=== PATIENT | male | born 1935 | race Caucasian/White ===

== ENCOUNTER → 2020-05-25 | Outpatient (CLI) | payer MEDICARE, OTHER ==
--- NOTE | 2020-05-25 17:31 | RAD ---
L-spine 3 views INDICATION: Back pain COMPARISON: Abdomen pelvis CT without IV contrast of 09/14/2006. FINDINGS: 5 lumbar type vertebrae are identified with mild exaggeration of normal lumbar lordosis near the lumb osacral junction. Mild retrolisthesis of L2 on L3 is apparent and there is mild levoscoliosis with th e apex at L1-L2. There is preservation of vertebral body heights although the bones are demineralized. There is howeve r narrowing of multiple disc spaces throughout the lumbar spine, and in association with facet hypert rophy, likely results in at least mild foraminal stenoses most conspicuous at L5-S1 and at L2-L3. Soft tissues show aortic calcifications. Sacroiliac joints and hips are unremarkable. IMPRESSION: Lumbar spinal degenerative changes with no acute fracture or aggressive appearing bony lesions. Electronically signed by: Estuardo Ruelas MD (05/25/2020 5:29 PM) [id number]
== END ==
LOC: DXRAD 12:03
PROVIDERS: ATTEND Family Medicine
DX: M48.061 Spinal stenosis, lumbar region without neurogenic claudication (principal); M40.56 Lordosis, unspecified, lumbar region; M54.5 Low back pain
CPT/HCPCS: 72100

== ENCOUNTER → 2021-05-31 | Outpatient (CLI) | payer MEDICARE, OTHER ==
--- NOTE | 2021-05-31 18:59 | RAD ---
Chest PA and lateral: Reason for examination: Upper respiratory infection. The heart size is normal. Mediastinum is unremarkable. Lung radford are clear. No acute bony abnormali ties are seen. Impression: No acute cardiopulmonary disease. Electronically signed by: Ginger Varner MD (05/31/2021 6:56 PM) [id number]
== END ==
LOC: RAD 09:36
PROVIDERS: ATTEND Family Medicine
DX: J06.9 Acute upper respiratory infection, unspecified (principal)
CPT/HCPCS: 71046